=== PATIENT | male | born 1955 | race Caucasian/White ===

== ENCOUNTER → 2024-08-03 | Outpatient (CLI) | payer MEDICARE | LOC: LAB 15:45 → LAB SHORT 15:45 | DX: B37.0 Candidal stomatitis (principal) | CPT/HCPCS: 87070; 87075; 87081; 87205 ==

== ENCOUNTER 2024-10-11 07:02 | Day surgery (SDC) | payer MEDICARE ==
[~2024-10-11] VITALS: Ht 172.7 cm; Wt 73.2 kg
[2024-10-11] VITALS (13 sets, daily range): BP systolic 98–132; BP diastolic 63–85
[~2024-10-11 07:02] MED LIST: Lactated Ringer's 1,000 ML IV SCH
[2024-10-11] MEDS ORDERED: propofoL 40 ML IV ONE (07:29)
--- NOTE | 2024-10-11 07:33 | NUR ---
Ambulatory in Day Surgery. History, Chart, Medications and Allergies reviewed before start of procedure. Lungs clear T/O to Auscultation. Patient confirms NPO status and agrees with scheduled surgery. Pre-Op teaching done. Pt verbalizes understanding. Patient States Post-Procedure ride home has been arranged.
--- NOTE | 2024-10-11 07:50 | NUR ---
10/11/24 Shannan Fischer CONFIRMED AND REVIEWED H&P, MEDCICATIONS, ALLERGIES, MEDICAL HISTORY, RESPIRATORY HISTORY, VITAL SIGNS, 3-LEAD EKG, CONSENTS, AND PHYSICIAN ORDERS. PATIENT CONFIRMS NPO STATUS AND AGREES WITH SCHEDULED PROCEDURE. MONITOR INTACT WITH CONTINUOUS PULSE OXIMETRY, CAPNOGRAPHY, 3-LEAD EKG, INTERMITTENT BP. SUPPLEMENTAL O2 TO BE TITRATED THROUGHOUT PROCEDURE TO MAINTAIN O2 SATURATION ABOVE 90%. PATIENT DETERMINED TO BE ASA APPROPRIATE FOR PROPOFOL SEDATION PRIOR TO START OF PROCEDURE BY . MALLAMPATI CLASS 2 AIRWAY: COMPLETE VISUALIZATION OF THE UVULA.
--- NOTE | 2024-10-11 08:40 | NUR ---
Discharge instructions reviewed with patient. Patient verbalizes understanding. Copy given to patient to take home.
--- NOTE | 2024-10-11 08:40 | NUR ---
Discharged via wheelchair to private car for ride home.
== END 2024-10-11 08:42 | disposition home or self-care (01) ==
LOC: ORSCMMR 07:02 → ORD 08:00 → ORSCMMR 08:42
PROVIDERS: Internal Medicine Gastroenterology
PROC: 0DJD8ZZ Inspection of Lower Intestinal Tract, Via Natural or Artificial Opening Endoscopic (ICD-10-PCS; principal; 2024-10-11 08:00)
DX: Z12.11 Encounter for screening for malignant neoplasm of colon (principal); Z86.0100 Personal history of colon polyps, unspecified; Z80.0 Family history of malignant neoplasm of digestive organs; K64.8 Other hemorrhoids
CPT/HCPCS: J2704; J7120